=== PATIENT | female | born 1960 | race Caucasian/White ===

== ENCOUNTER → 2017-01-23 | Outpatient (CLI) | payer BC | LOC: MC.RAD 12:53 | DX: Z12.31 Encounter for screening mammogram for malignant neoplasm of breast (principal) ==

== ENCOUNTER → 2018-03-18 | Outpatient (CLI) | payer BC | LOC: MC.RAD 08:40 | DX: Z12.31 Encounter for screening mammogram for malignant neoplasm of breast (principal) ==

== ENCOUNTER → 2019-07-01 | Outpatient (CLI) | payer BC | LOC: MC.RAD 15:39 | DX: Z12.31 Encounter for screening mammogram for malignant neoplasm of breast (principal) ==

== ENCOUNTER → 2020-08-04 | Outpatient (CLI) | payer BC | LOC: MC.RAD 14:15 | DX: Z12.31 Encounter for screening mammogram for malignant neoplasm of breast (principal) ==

== ENCOUNTER 2021-01-07 11:00 | Day surgery (SDC) | payer BC ==
[~2021-01-07] VITALS: Ht 160 cm; Wt 61.7 kg
[2021-01-07] MEDS ORDERED: PREMPRO 0.625/21 TAB PO (12:04)
[2021-01-07] MEDS ORDERED: HCTZ12.5TAB PO (12:04)
[2021-01-07 12:06] VITALS: BP 158/87; PULSE 75; TEMP 98.2
[2021-01-07 13:45] VITALS: BP 137/91; PULSE 73; TEMP 97.8
--- NOTE | 2021-01-07 13:45 | NUR ---
Patient arrives to [facility] [address] via cart, accompanied by CONTACT CENTER MANAGER Ayanna and CLOTHESPIN MACHINE OPERATOR Juan Carlos Nunez. Dr. Garcia comes to the bedside and speaks with the patient as well. She is alert and oriented. She denies foot pain or any nausea. She does complain of a headache, which Dr. Garcia orders 2 325 aspirin for. PIV is to TKO. Her spouse is at the bedside. Monitoring is applied - VSS and WNL on room air. She has numbness/decreased sensation from her lower ankle to her toes on the right side. Her toes are warm and pink. SHe is able to wiggle her toes. She has a dry surgical dressing and a operative boot on the right foot. She requests and receives toast and water.
[2021-01-07 14:00] VITALS: BP 144/95; PULSE 65
[2021-01-07 14:15] VITALS: BP 159/87; PULSE 62
--- NOTE | 2021-01-07 14:35 | NUR ---
Patient has met discharge criteria. Discharge instructions are discussed. She denies any questions and verbalizes understanding. PIV is removed with catheter intact and hemostasis achieved. She ambulates to the restroom with 2:1 assist, as her foot is numb. She voids and returns to room. She is changing to her clothing independently.
--- NOTE | 2021-01-07 14:45 | NUR ---
Patient is escorted to the exit via wheelchair by staff. She is discharged to home to the care of her , who drives her home in a private vehicle at 1445.
== END 2021-01-07 14:45 | disposition home or self-care (01) ==
LOC: SDCO 11:00
DX: M20.11 Hallux valgus (acquired), right foot (principal); M21.611 Bunion of right foot; I10 Essential (primary) hypertension; D64.9 Anemia, unspecified; Z20.822 Contact with and (suspected) exposure to COVID-19; Z82.3 Family history of stroke; Z83.3 Family history of diabetes mellitus
CPT/HCPCS: J0690; J2704; J7120

== ENCOUNTER 2021-02-02 08:47 | Day surgery (SDC) | payer BC ==
[~2021-02-02] VITALS: Ht 160 cm; Wt 60.6 kg
[~2021-02-02 08:47] MED LIST: HCTZ12.5TAB PO; PREMPRO 0.625/21 TAB PO
--- NOTE | 2021-02-02 11:40 | NUR ---
Pt to [facility] [address] via cart from OR. Pt awake and alert. Pt denies pain. Jamie wrap dressing to left foot is clean, dry and intact. Post op shoe on. Left toes are warm, dry, and pink. Pt able to move left toes and reports "Tingling" to left toes. Ice tea and toast given per pt request. Call light within reach.
[2021-02-02 11:41] VITALS: BP 107/65; PULSE 70; TEMP 98
[2021-02-02 11:55] VITALS: BP 135/79; PULSE 57
--- NOTE | 2021-02-02 11:55 | NUR ---
Pt continues to rest. Denies pain or nausea. Tolerating po foods without difficulties. Call light within reach.
[2021-02-02 12:10] VITALS: BP 135/79; PULSE 60
--- NOTE | 2021-02-02 12:10 | NUR ---
Discharge instructions reviewed. Pt voices understanding. IV site discontinued with all parts intact. Pt up to dress. Call light within reach.
--- NOTE | 2021-02-02 12:40 | NUR ---
Pt escorted to private car via wheel chair. Pt accompanied home by her .
[2021-02-02 15:05] VITALS: BP 168/95; PULSE 63; TEMP 98.2
== END 2021-02-02 12:40 | disposition home or self-care (01) ==
LOC: SDCO 08:47
DX: M20.12 Hallux valgus (acquired), left foot (principal); M21.612 Bunion of left foot; I10 Essential (primary) hypertension; D64.9 Anemia, unspecified; Z20.822 Contact with and (suspected) exposure to COVID-19; Z79.899 Other long term (current) drug therapy; Z88.8 Allergy status to other drugs, medicaments and biological substances; Z83.3 Family history of diabetes mellitus; Z82.3 Family history of stroke
CPT/HCPCS: J0690; J2704; J3010; J7120

== ENCOUNTER → 2022-07-25 | Outpatient (CLI) | payer BC | LOC: MC.RAD 08:32 | DX: Z12.31 Encounter for screening mammogram for malignant neoplasm of breast (principal) ==